=== PATIENT | female | born 1975 | race African-American/Black ===

== ENCOUNTER 2017-07-28 10:34 | Emergency (ER) | payer OTHER ==
[~2017-07-28] VITALS: Ht 154.9 cm; Wt 69.4 kg
[~2017-07-28 10:34] MED LIST: BUPR1PAT8 TP; CYCL10TA2 PO; ESCITALOPRAM OX10 MG PO; HYDR-971 PO; HYDR25TA9 PO; ONDA4TAB10 SL; OXYC-327 PO; PREG150C PO; TIZA2TAB PO; TRAM50TA PO; VENL75CA6 PO
[2017-07-28] MEDS ORDERED: IV NORMAL SALINE 1000ML BAG 1,000 ML IV SCH (11:14)
[2017-07-28] MEDS ORDERED: ONDANSETRON PF 4 MG/2 ML VIAL. IV ONE (11:15)
[2017-07-28] MEDS ORDERED: 0.9 % SODIUM CHLORIDE 10 ML DISP.SYRIN. IV PRN (11:15)
[2017-07-28] MEDS ORDERED: HYDROmorphone 2 MG/ML VIAL IV/SQ PRN (11:15)
[2017-07-28] MEDS ORDERED: KETOROLAC 30 MG/ML INJ. IV ONE (11:15)
--- NOTE | 2017-07-28 11:20 | EKG ---
[facility] [address] [place] [address] Test Date: 2017-07-28 Test Time: 11:07:02 Pat Name: HUGO NOVA Department: Room: Gender: F [employer]: : 1975 Requested By: YEN CAMILO Order Number: [id number] Reading MD: Measurements Intervals [place] Rate: 114 P: 81 WA: 162 QRS: 83 QRSD: 74 T: 56 QT: 320 QTc: 444 Interpretive Statements SINUS TACHYCARDIA BIATRIAL ENLARGEMENT QRS(T) CONTOUR ABNORMALITY CONSIDER ANTEROSEPTAL MYOCARDIAL DAMAGE ABNORMAL ECG RI6.01 No previous ECG available for comparison
[2017-07-28 11:27] LABS: BILIRUBIN,URINE MODERATE (NEG); GLUCOSE,URINE NEGATIVE (NEG); NITRITE,URINE NEGATIVE (NEG); PROTEIN,URINE 100 mg/dL (NEG-TRACE)
--- NOTE | 2017-07-28 11:33 | PHYS DOC ---
Past Medical History Past Medical History: Asthma, Hypertension, Other Additional Past Medical Histor: CHRONIC BACK PAIN, FIBROMYALGIA Past Surgical History: No Surgical History Smoking: Cigarettes, Greater than 1 pack/day Alcohol Use: None Drug Use: Marijuana Adult General Chief Complaint Chief Complaint: WEAKNESS/GENERALIZED HPI HPI This patient is a pleasant 42-year-old -Prydeinig female with a known history of asthma, hypertension, chronic back pain and fibromyalgia presents with 4-5 day history of nausea vomiting and diarrhea. She is gotten increasingly fatigued and weak as she has become more dehydrated over the last 4 days. She's had sick contacts at home with similar symptoms before she began having nausea and vomiting described as nonbilious nonbloody but described with a much mucus. She's also had 2 days now of loose stools without blood or mucus. She denies any abdominal pain now but has had crampy abdominal pain before the events. He denies any travel outside the country denies any antibiotics, denies any direct bili fevers but has had chills with decreased appetite and inability to tolerate by mouth food and fluids for last 4 days. She feels generally weak but no headache, no focal neurologic deficit no change in vision changes be spreading. Patient cannot be as she says she's had a tubal ligation is not sexually active and she is single. She is a 004 Review of Systems Review of Systems Constitutional: Subjective fevers and chills Eyes: Denies change in visual acuity, redness, or eye pain [] HENT: Denies nasal congestion or sore throat [] Respiratory: Denies cough or shortness of breath [] Cardiovascular: No additional information not addressed in HPI [] GI: Patient has had some diffuse abdominal pain with nausea and vomiting nonbilious nonbloody with diarrhea with mucus. : Denies dysuria or hematuria [] Musculoskeletal: Patient has chronic back pain and chronic lower leg pain that' s consistent with her fibromyalgia Integument: Denies rash or skin lesions [] Neurologic: Denies headache, focal weakness or sensory changes [] Endocrine: Denies polyuria or polydipsia [] All other systems were reviewed and found to be within normal limits, except as documented in this note. Current Medications Current Medications Current Medications Medications (Trade) Dose Ordered Sig/[facility] Start Time Stop Time Status Last Admin Dose Admin Hydromorphone HCl (Dilaudid) 1 mg PRN Q15MIN PRN 07/28/17 11:15 07/29/17 11:14 07/28/17 11:40 1 MG Info (Do NOT chart on this entry -- for MONITORING) 1 each PRN DAILY PRN 07/28/17 11:45 07/30/17 11:44 Iohexol (Omnipaque 300 Mg/ml) 75 ml 1X ONCE 07/28/17 11:45 07/28/17 11:46 DC 07/28/17 12:44 75 ML Ketorolac Tromethamine (Toradol) 30 mg 1X ONCE 07/28/17 11:15 07/28/17 11:19 DC 07/28/17 11:40 30 MG Lorazepam (Ativan) 1 mg 1X ONCE 07/28/17 11:15 07/28/17 11:19 DC 07/28/17 11:40 1 MG Ondansetron HCl (Zofran) 4 mg 1X ONCE 07/28/17 11:15 07/28/17 11:19 DC 07/28/17 11:40 4 MG Sodium Chloride (Normal Saline Flush) 10 ml QSHIFT PRN 07/28/17 11:15 Allergies Allergies Allergies Coded Allergies Type Severity Reaction Last Updated Verified Penicillins Allergy Intermediate 06/08/16 Yes Physical Exam Physical Exam Constitutional: Well developed, patient is obvious uncomfortable is crying being examined she is nontoxic HENT: Normocephalic, atraumatic, bilateral external ears normal, very dry mucous members of the oropharynx, no oral exudates, nose normal. [] Eyes: PERRLA, EOMI, conjunctiva normal, no discharge. [] Neck: Normal range of motion, no tenderness, supple, no stridor. [] Cardiovascular: Patient is tachycardic but no murmurs, rubs or rubs are appreciated. Lungs & Thorax: Bilateral breath sounds clear to auscultation [] Abdomen: Patient has hyperactive bowel sounds soft with no tenderness no Henderson' s or McBurney's point tender to palpation. No pulsatile masses no Arellano Murray sign Skin: Warm, dry, no erythema, no rash. [] Back: No tenderness, no CVA tenderness. [] Extremities: Patient has diffuse lower extremity tenderness on multiple joint spots multiple points of her skin with no obvious signs of swelling, no change in skin color she has +2 brisk capillary refill +2 brisk peripheral pulses Neurologic: Alert and oriented X 3, normal motor function, normal sensory function, no focal deficits noted. [] Psychologic: Patient is very anxious but her judgment is intact Current Patient Data Vital Signs Vital Signs Date Time Temp Pulse Resp B/P (MAP) Pulse Ox O2 Delivery O2 Flow Rate FiO2 07/28/17 11:00 98.8 123 22 141/104 (116) 100 Room Air 98.8 Lab Values Laboratory Tests Test 07/28/17 11:12 07/28/17 11:15 07/28/17 12:00 POC Urine HCG, Qualitative Hcg negative (Negative) Urine Collection Type Void Urine Color [place] Urine Clarity Cloudy Urine pH 6.0 Urine Specific [place] >=1.030 Urine Protein 100 mg/dL (NEG-TRACE) Urine Glucose (UA) Negative mg/dL (NEG) Urine Ketones (Stick) >=80 mg/dL (NEG) Urine Blood Negative (NEG) Urine Nitrite Negative (NEG) Urine Bilirubin Moderate (NEG) Urine Urobilinogen Dipstick 1.0 mg/dL (0.2 mg/dL) Urine Leukocyte Esterase Small (NEG) Urine RBC 0 /HPF (0-2) Urine WBC 5-10 /HPF (0-4) Urine Squamous Epithelial Cells Mod /LPF Urine Bacteria Mod /HPF (0-FEW) Urine Hyaline Casts Moderate /HPF Urine Mucus Marked /LPF Urine Opiates Screen Neg (NEG) Urine Methadone Screen Neg (NEG) Urine Barbiturates Neg (NEG) Urine Phencyclidine Screen Neg (NEG) Urine Amphetamine/Methamphetamine Neg (NEG) Urine Benzodiazepines Screen Neg (NEG) Urine Cocaine Screen Neg (NEG) Urine Cannabinoids Screen Pos (NEG) Urine Ethyl Alcohol Neg (NEG) Influenza Type A Antigen Negative (NEGATIVE) Influenza Type B Antigen Negative (NEGATIVE) White Blood Count 5.5 x10^3/uL (4.0-11.0) Red Blood Count 4.51 x10^6/uL (3.50-5.40) Hemoglobin 15.1 g/dL (12.0-15.5) Hematocrit 44.5 % (36.0-47.0) Mean Corpuscular Volume 99 fL (79-100) Mean Corpuscular Hemoglobin 33 pg (25-35) Mean Corpuscular Hemoglobin Concent 34 g/dL (31-37) Red Cell Distribution Width 13.6 % (11.5-14.5) Platelet Count 106 x10^3/uL (140-400) L Neutrophils (%) (Auto) 57 % (31-73) Lymphocytes (%) (Auto) 30 % (24-48) Monocytes (%) (Auto) 11 % (0-9) H Eosinophils (%) (Auto) 1 % (0-3) Basophils (%) (Auto) 1 % (0-3) Neutrophils # (Auto) 3.1 x10^3uL (1.8-7.7) Lymphocytes # (Auto) 1.6 x10^3/uL (1.0-4.8) Monocytes # (Auto) 0.6 x10^3/uL (0.0-1.1) Eosinophils # (Auto) 0.1 x10^3/uL (0.0-0.7) Basophils # (Auto) 0.1 x10^3/uL (0.0-0.2) Platelet Estimate Pending Sodium Level 140 mmol/L (136-145) Potassium Level 2.9 mmol/L (3.5-5.1) *L Chloride Level 103 mmol/L (98-107) Carbon Dioxide Level 25 mmol/L (21-32) Anion Gap 12 (6-14) Blood Urea Nitrogen 10 mg/dL (7-20) Creatinine 1.0 mg/dL (0.6-1.0) Estimated GFR (Cockcroft-Gault) 73.6 BUN/Creatinine Ratio 10 (6-20) Glucose Level 100 mg/dL (70-99) H Calcium Level 8.5 mg/dL (8.5-10.1) Total Bilirubin 1.7 mg/dL (0.2-1.0) H Aspartate Amino Transferase (AST) 19 U/L (15-37) Alanine Aminotransferase (ALT) 18 U/L (14-59) Alkaline Phosphatase 74 U/L (46-116) Troponin I Quantitative < 0.017 ng/mL (0.000-0.055) Total Protein 8.1 g/dL (6.4-8.2) Albumin 3.9 g/dL (3.4-5.0) Albumin/Globulin Ratio 0.9 (1.0-1.7) L Lipase 153 U/L (73-393) Serum Test, Qualitative Negative (NEG) Laboratory Tests 07/28/17 12:00 Laboratory Tests 07/28/17 12:00 EKG EKG Patient EKG timed 11:07 AM read by me 07/28/2017 demonstrates heart rate of 114 there is a P wave there were QRS this is normal sinus tachycardia she has significant bilateral atrial enlargement looking at the P wave in V1 and the P wave in lead 2 patient has a [place] interval 160 which is normal, QRS width of 70/ normal, QTC of 444 which is also normal. This is an abnormal EKG but there is no ST segment T-wave changes consistent with ischemia patient has no pathologic Q-wave[] Radiology/Procedures Radiology/Procedures [] [facility] [address] [place] [address] IMAGING REPORT Signed PATIENT: HUGO NOVA ACCOUNT: [id number] : 1975 LOCATION: ER AGE: 42 SEX: F EXAM STATUS: REG ER ORD. PHYSICIAN: YEN CAMILO MD REASON: diffuse ab pain PROCEDURE: CT ABD PELV W/ IV CONTRST ONLY Indication: Diffuse abdominal pain. Axial imaging through the abdomen and pelvis was performed after the administration of intravenous contrast. PQRS Compliance Statement: One or more of the following individualized dose reduction techniques were utilized for this examination: 1. Automated exposure control 2. Adjustment of the mA and/or kV according to patient size 3. Use of iterative reconstruction technique The lung bases are free of acute infiltrates. No discrete liver mass is identified. The gallbladder is unremarkable. The pancreas and spleen are unremarkable apart from multiple splenic granulomas. No adrenal mass is identified. The kidneys are unremarkable. Aorta is heavily calcified but nonaneurysmal. The bladder appears decompressed. There is some low density within the cervix, perhaps nabothian cysts. There is some small amount of free fluid which may be physiologic. The small and large bowel loops appear to be normal caliber. No free fluid is seen. No definite inflammatory process is detected. The appendix is visualized and unremarkable. Impression: Essentially unremarkable CT of the abdomen and pelvis. No acute feature is identified. DICTATED and SIGNED BY: DIANE BARBOSA MD DATE: 07/28/17 2658 CC: YEN CAMILO MD; MARTY CANTU MD ~ Course & Med Decision Making Course & Med Decision Making Pertinent Labs and Imaging studies reviewed. (See chart for details) []At approximately 12:30 PM laboratory called with a critical potassium of 2.9. This is expected given her dehydration and diarrhea and fluid losses. Patient started feeling markedly improved with IV fluids 1 L antiemetics and pain medications. Patient is resting quietly her BUN/creatinine on CMP are normal but she has a urine specific gravity 1.30 which shows healing casts as well likely secondary to dehydration. She has consolable epithelial cells which is likely contaminant on her urinalysis as well and no other signs of infection other than what blood cells 1-5 per high-powered field Her abdomen is now soft she had no specific guarding or rebound. Waiting the results of the CT scan. EKG although not normal showed signs of sinus tachycardia which is likely secondary to either pain or volume depletion. Patient's heart rate is improved patient's urine drug screen did demonstrate signs of THC. Patient's CAT scan of abdomen and pelvis is unremarkable she has some small likely physiologic free fluid in the abdomen otherwise normal looking CT. Patient tells me that their symptoms given during CC are improved. We reviewed labs and radiology reports with patient patient understands reason to follow-up his intractable nausea and vomiting she is well-hydrated now she tolerated by mouth and drinking at the bedside as we speak. Patient given supportive medications include Bentyl and Zofran and Lomotil. She is only on medications for her pain I do not feel couple Advil extra narcotics to her regiment given her outpatient regime. Dragon Disclaimer Dragon Disclaimer This electronic medical record was generated, in whole or in part, using a voice recognition dictation system. Departure Departure Impression: Primary Impression: Abdominal pain Additional Impression: Nausea vomiting and diarrhea Disposition: 01 HOME, SELF-CARE Condition: STABLE Referrals: MARTY CANTU MD (PCP) Patient Instructions: Abdominal Pain (Nonspecific), Diarrhea, Nausea and Vomiting Additional Instructions: discharge: I've spoken with the patient and/or caregivers. I've explained the patient's condition, diagnosis and treatment plan based on information available to me at this time. I've answered the patient's and/or caregivers questions and addressed any concerns. The patient and/or caregivers have a good understanding the patient's diagnosis, condition and treatment plan as can be expected at this point. Vital signs have been stabilized. The patient's condition is stable for discharge from the emergency department. The patient will pursue further outpatient evaluation with her primary care provider or other designated consulting physician as outlined in the discharge instructions. Patient and/or caregivers are agreeable to this plan of care and follow-up instructions have been explained in detail. The patient and/or caregivers have received these instructions in written format and expressed understanding of these discharge instructions. The patient and her caregivers are aware that if any significant change in condition or worsening of symptoms should prompt him to immediately return to this of the closest emergency department. If an emergent department is not readily available I would encourage him to call 911. Scripts Ondansetron (ZOFRAN ODT) 4 Mg Tab.rapdis 4 MG PO BID Y for NAUSEA/VOMITING for 5 Days, #10 TAB Prov: YEN CAMILO MD 07/28/17 Diphenoxylate Hcl/Atropine (LOMOTIL TABLET) 1 Each Tablet 1 TAB PO QID, #20 TAB Prov: YEN CAMILO MD 07/28/17 Dicyclomine Hcl (BENTYL) 10 Mg Capsule 1 CAP PO TID, #30 CAP 0 Refills Prov: YEN CAMILO MD 07/28/17 Problem Qualifiers YEN CAMILO MD Jul 28, 2017 11:33
[2017-07-28 11:34] LABS: BARBITURATES NEG (NEG); BENZODIAZEPINES NEG (NEG); CANNABINOIDS POS (NEG); COCAINE NEG (NEG); METHADONE NEG (NEG); OPIATES NEG (NEG); PHENCYCLIDINE NEG (NEG)
[2017-07-28] MEDS ORDERED: CONTRAST GIVEN MC PRN (11:45)
[2017-07-28] MEDS ORDERED: IOHEXOL 300 MG/ML 100ML VIAL. IV ONE (11:45)
[2017-07-28 11:50] LABS: SQUAMOUS EPITHELIAL CELL,UR MOD /LPF
[2017-07-28 11:51] LABS: BACTERIA,URINE MOD /HPF (0-FEW); RBC,URINE 0 /HPF (0-2)
[2017-07-28 12:07] LABS: OBC FLU VALID
[2017-07-28 12:13] LABS: BASO # 0.1 x10^3/uL (0.0-0.2); BASO % 1 % (0-3); EOS % 1 % (0-3); HEMATOCRIT 44.5 % (36.0-47.0); HEMOGLOBIN 15.1 g/dL (12.0-15.5); LYMPH # 1.6 x10^3/uL (1.0-4.8); LYMPH % 30 % (24-48); MEAN CORPUSCULAR HEMOGLOBIN 33 pg (25-35); MEAN CORPUSCULAR HGB CONC 34 g/dL (31-37); MEAN CORPUSCULAR VOLUME 99 fL (79-100); MONO % 11 % (0-9); NEUT % 57 % (31-73); PLATELET COUNT 106 x10^3/uL (140-400); RED BLOOD COUNT 4.51 x10^6/uL (3.50-5.40); RED CELL DISTRIBUTION WIDTH 13.6 % (11.5-14.5); WHITE BLOOD COUNT 5.5 x10^3/uL (4.0-11.0)
[2017-07-28 12:15] VITALS: BP 134/91
[2017-07-28 12:24] LABS: NEG OBC SER NEG; POS OBC SER POS
[2017-07-28 12:28] LABS: ALBUMIN 3.9 g/dL (3.4-5.0); ALBUMIN/GLOBULIN RATIO 0.9 (1.0-1.7); CALCIUM 8.5 mg/dL (8.5-10.1); GFR 73.6; TOTAL BILIRUBIN 1.7 mg/dL (0.2-1.0); TOTAL PROTEIN 8.1 g/dL (6.4-8.2)
[2017-07-28 12:32] LABS: POTASSIUM 2.9 mmol/L (3.5-5.1)
--- NOTE | 2017-07-28 13:11 | RAD ---
Indication: Diffuse abdominal pain. Axial imaging through the abdomen and pelvis was performed after the administration of intravenous contrast. PQRS Compliance Statement: One or more of the following individualized dose reduction techniques were utilized for this examination: 1. Automated exposure control 2. Adjustment of the mA and/or kV according to patient size 3. Use of iterative reconstruction technique The lung bases are free of acute infiltrates. No discrete liver mass is identified. The gallbladder is unremarkable. The pancreas and spleen are unremarkable apart from multiple splenic granulomas. No adrenal mass is identified. The kidneys are unremarkable. Aorta is heavily calcified but nonaneurysmal. The bladder appears decompressed. There is some low density within the cervix, perhaps nabothian cysts. There is some small amount of free fluid which may be physiologic. The small and large bowel loops appear to be normal caliber. No free fluid is seen. No definite inflammatory process is detected. The appendix is visualized and unremarkable. Impression: Essentially unremarkable CT of the abdomen and pelvis. No acute feature is identified.
[2017-07-28] MEDS ORDERED: DIPH1TAB PO (14:09)
[2017-07-28] MEDS ORDERED: DICY10CA53 PO (14:09)
[2017-07-28] MEDS ORDERED: ONDA4TAB10 PO (14:09)
[2017-07-28] MEDS ORDERED: POTASSIUM CHLO10 MEQ PO (14:13)
[2017-07-28 15:06] LABS: PLT ESTIMATE DECREASED (ADEQUATE)
== END 2017-07-28 14:22 | disposition home or self-care (01) ==
LOC: ER 10:34
DX: R10.84 Generalized abdominal pain (principal); R11.2 Nausea with vomiting, unspecified; R19.7 Diarrhea, unspecified; G89.29 Other chronic pain; I10 Essential (primary) hypertension; M79.7 Fibromyalgia; J45.909 Unspecified asthma, uncomplicated; F12.10 Cannabis abuse, uncomplicated; F17.210 Nicotine dependence, cigarettes, uncomplicated; Z88.0 Allergy status to penicillin
CPT/HCPCS: 36415; 74177; 80053; 80307; 81001; 81025; 83690; 84484; 84703; 85025; 87804; 93005; 96361; 96374; 96375; 99285; J1170; J1885; J2060; J2405; J7030; Q9967; G0479

== ENCOUNTER 2018-01-06 13:29 | Emergency (ER) | payer OTHER ==
[2018-01-06] MEDS ORDERED: ONDANSETRON PF 4 MG/2 ML VIAL. ×2 (14:09→16:02)
[2018-01-06] MEDS: IV NORMAL SALINE 1000ML BAG 1,000 ML IV (14:54)
[2018-01-06 15:13] LABS: ADD MAN DIFF? NO
[2018-01-06 15:21] LABS: BASO # 0.1 x10^3/uL (0.0-0.2); BASO % 1 % (0-3); EOS % 1 % (0-3); HEMATOCRIT 44.3 % (36.0-47.0); HEMOGLOBIN 15.4 g/dL (12.0-15.5); LYMPH # 1.3 x10^3/uL (1.0-4.8); LYMPH % 19 % (24-48); MEAN CORPUSCULAR HEMOGLOBIN 34 pg (25-35); MEAN CORPUSCULAR HGB CONC 35 g/dL (31-37); MEAN CORPUSCULAR VOLUME 96 fL (79-100); MONO # 0.6 x10^3/uL (0.0-1.1); MONO % 9 % (0-9); NEUT # 4.8 x10^3uL (1.8-7.7); NEUT % 71 % (31-73); PLATELET COUNT 191 x10^3/uL (140-400); RED BLOOD COUNT 4.59 x10^6/uL (3.50-5.40); RED CELL DISTRIBUTION WIDTH 13.7 % (11.5-14.5); WHITE BLOOD COUNT 6.8 x10^3/uL (4.0-11.0)
[2018-01-06 15:25] LABS: ANION GAP 14 (6-14); BLOOD UREA NITROGEN 10 mg/dL (7-20); BUN/CREATININE RATIO 10 (6-20); CALCIUM 9.7 mg/dL (8.5-10.1); CARBON DIOXIDE 24 mmol/L (21-32); CHLORIDE 104 mmol/L (98-107); GFR 73.6; GLUCOSE 90 mg/dL (70-99); POTASSIUM 3.2 mmol/L (3.5-5.1); SODIUM 142 mmol/L (136-145)
[2018-01-06 15:31] LABS: ALBUMIN 4.3 g/dL (3.4-5.0); ALBUMIN/GLOBULIN RATIO 0.9 (1.0-1.7); ALK PHOS 81 U/L (46-116); ALT (SGPT) 21 U/L (14-59); AST (SGOT) 15 U/L (15-37); MAGNESIUM 1.9 mg/dL (1.8-2.4); TOTAL BILIRUBIN 1.3 mg/dL (0.2-1.0)
[2018-01-06 15:36] LABS: TROPONINI < 0.017 ng/mL (0.000-0.055)
[2018-01-06 15:39] LABS: CKMB INDEX 0.6 % (0-4); CKMB MASS 0.8 ng/mL (0.0-3.6); CREATINE KINASE 139 U/L (26-192)
[2018-01-06 15:40] LABS: D-DIMER 0.72 ug/mlFEU (0.00-0.50)
[2018-01-06 16:11] LABS: PLT ESTIMATE ADEQUATE (ADEQUATE)
[2018-01-06 16:12] LABS: POIKILOCYTOSIS SLIGHT; SCHISTOCYTES OCC
[2018-01-06 16:32] LABS: BILIRUBIN,URINE NEGATIVE (NEG); CLARITY,URINE CLOUDY; COLOR,URINE YELLOW; GLUCOSE,URINE NEGATIVE (NEG); NITRITE,URINE NEGATIVE (NEG); PH,URINE 6.5; PROTEIN,URINE 30 mg/dL (NEG-TRACE)
[2018-01-06 16:40] LABS: BACTERIA,URINE MANY /HPF (0-FEW); HYALINE CASTS, URINE MANY /HPF; RBC,URINE 0 /HPF (0-2); SQUAMOUS EPITHELIAL CELL,UR MANY /LPF; WBC,URINE >40 /HPF (0-4)
[2018-01-06] MEDS ORDERED: CONTRAST GIVEN. MC (17:00)
[2018-01-06] MEDS ORDERED: IOHEXOL 300 MG/ML 100ML VIAL. IV (17:00)
[2018-01-06 17:04] LABS: NEG OBC UR NEG; POS OBC UR POS; U PREG PATIENT NEGATIVE (NEG)
== END 2018-01-06 18:02 | disposition home or self-care (01) ==
LOC: ER 13:29
DX: T67.5XXA Heat exhaustion, unspecified, initial encounter (principal); R55 Syncope and collapse; I10 Essential (primary) hypertension; J45.909 Unspecified asthma, uncomplicated; G89.29 Other chronic pain; M79.7 Fibromyalgia; F12.10 Cannabis abuse, uncomplicated; Z88.0 Allergy status to penicillin
CPT/HCPCS: 36415; 71275; 80053; 81001; 81025; 82553; 83735; 84484; 85025; 85379; 87086; 93005; 96360; 99285-25; J7030

== ENCOUNTER 2018-07-03 09:10 | Emergency (ER) | payer OTHER ==
[~2018-07-03] VITALS: Ht 157.5 cm; Wt 56.7 kg
[~2018-07-03 09:10] MED LIST changes: +DICY10CA53 PO; +DIPH1TAB PO; +HYDR-2145 PO; +HYDR-3164 PO; -HYDR-971 PO; -HYDR25TA9 PO; +ONDA4TAB10 PO; -OXYC-327 PO; +OXYC1TAB19 PO; +POTA10TA12 PO
[2018-07-03 09:22] VITALS: BP 130/76
[2018-07-03] MEDS ORDERED: KETOROLAC 60 MG/2 ML INJ. IM ONE (09:30)
[2018-07-03] MEDS ORDERED: METH4TAB2 PO (09:51)
--- NOTE | 2018-07-03 09:52 | PHYS DOC ---
Past Medical History Past Medical History: Asthma, Hypertension, Other Additional Past Medical Histor: CHRONIC BACK PAIN, FIBROMYALGIA Past Surgical History: No Surgical History Alcohol Use: None Drug Use: Marijuana Adult General Chief Complaint Chief Complaint: LOWEREXTREMITY INJURY HPI HPI Patient is a 43 year old female who presents with right sciatic pain radiating down through her buttock. The patient states that approximately one week ago she was walking and slipped on some wet ground. She landed mainly on her right buttock and states that the pain has gradually intensified. She denies spontaneous loss of bowel or bladder, saddle numbness or foot drop. She denies loss of consciousness or other injury. Review of Systems Review of Systems Constitutional: Denies fever or chills [] Respiratory: Denies cough or shortness of breath [] Cardiovascular: No additional information not addressed in HPI [] GI: Denies abdominal pain, nausea, vomiting, bloody stools or diarrhea [] : Denies dysuria or hematuria [] Musculoskeletal: See history of present illness Integument: Denies rash or skin lesions [] Neurologic: Denies headache, focal weakness or sensory changes [] Endocrine: Denies polyuria or polydipsia [] All other systems were reviewed and found to be within normal limits, except as documented in this note. Current Medications Current Medications Current Medications Medications (Trade) Dose Ordered Sig/[facility] Start Time Stop Time Status Last Admin Dose Admin Ketorolac Tromethamine (Toradol Im) 60 mg 1X ONCE 07/03/18 09:30 07/03/18 09:31 DC 07/03/18 09:36 60 MG Allergies Allergies Allergies Coded Allergies Type Severity Reaction Last Updated Verified Penicillins Allergy Intermediate 06/08/16 Yes Physical Exam Physical Exam Constitutional: Well developed, well nourished, no acute distress, non-toxic appearance. [] Cardiovascular:Heart rate regular rhythm, no murmur [] Lungs & Thorax: Bilateral breath sounds clear to auscultation [] Abdomen: Bowel sounds normal, soft, no tenderness, no masses, no pulsatile masses. [] Skin: Warm, dry, no erythema, no rash. [] Back: No point spinal tenderness, no CVA tenderness, tenderness over right SI joint extending through the buttock into the leg with palpation. [] Extremities: No tenderness, no cyanosis, no clubbing, ROM intact, no edema. [] Neurologic: Alert and oriented X 3, normal motor function, normal sensory function, no focal deficits noted. [] Psychologic: Affect normal, judgement normal, mood normal. [] Current Patient Data Vital Signs Vital Signs Date Time Temp Pulse Resp B/P (MAP) Pulse Ox O2 Delivery O2 Flow Rate FiO2 07/03/18 09:22 98.3 85 20 130/76 (94) Room Air 98.3 EKG EKG [] Radiology/Procedures Radiology/Procedures [] Course & Med Decision Making Course & Med Decision Making Pertinent Labs and Imaging studies reviewed. (See chart for details) [] Dragon Disclaimer Dragon Disclaimer This electronic medical record was generated, in whole or in part, using a voice recognition dictation system. Departure Departure Impression: Primary Impression: Sciatica Disposition: 01 HOME, SELF-CARE Condition: STABLE Referrals: MARTY CANTU MD (PCP) Patient Instructions: Sciatica Additional Instructions: Take the medication as prescribed. Follow-up with your primary care provider in 3 days if not improving or return to the emergency department if worsening. Scripts Methylprednisolone (MEDROL) 4 Mg Tab.ds.pk 1 PKG PO UD for sciatica, #1 PKG Prov: IRAJ MCKEE APRN 07/03/18 IRAJ MCKEE APRN Jul 03, 2018 09:52
== END 2018-07-03 10:20 | disposition home or self-care (01) ==
LOC: ER 09:10
DX: M54.41 Lumbago with sciatica, right side (principal); G89.11 Acute pain due to trauma; G89.29 Other chronic pain; I10 Essential (primary) hypertension; J45.909 Unspecified asthma, uncomplicated; Z88.0 Allergy status to penicillin; W01.0XXA Fall on same level from slipping, tripping and stumbling without subsequent striking against object, initial encounter; Y93.01 Activity, walking, marching and hiking; Y92.89 Other specified places as the place of occurrence of the external cause; Y99.8 Other external cause status
CPT/HCPCS: 96372; 99283; J1885